=== PATIENT | male | born 1995 | race Caucasian/White ===

== ENCOUNTER 2018-09-19 09:41 | Emergency (ER) | payer SELFPAY ==
[~2018-09-19] VITALS: Ht 180.3 cm; Wt 180.5 kg
[2018-09-19 09:50] VITALS: Ht 180.3 cm; Wt 180.5 kg
[2018-09-19 11:08] VITALS: BP 148/81
== END 2018-09-19 11:08 | disposition home or self-care (01) ==
LOC: ED 09:41
DX: H60.92 Unspecified otitis externa, left ear (principal)